=== PATIENT | male | born 1985 | race Hispanic/Latino ===

== ENCOUNTER 2016-11-29 09:59 | Emergency (ER) | payer OTHER ==
[~2016-11-29] VITALS: Ht 165.1 cm; Wt 68.0 kg
[2016-11-29 10:11] VITALS: BP 115/80
--- NOTE | 2016-11-29 11:48 | ED GENERAL ADULT ---
History of Present Illness General Chief Complaint: Abdominal Pain/Flank Pain Stated Complaint: PAIN TO LEFT FLANK Source: patient Exam Limitations: no limitations Vital Signs & Intake/Output Vital Signs & Intake/Output ED Intake and Output 11/30 0000 11/29 1200 Intake Total Output Total Balance Patient 150 lb Weight Weight Reported by Patient Measurement Method Allergies Coded Allergies: NO KNOWN ALLERGIES (11/29/16) Reconcile Medications Ondansetron (Zofran Odt) 4 MG TAB.RAPDIS 1 TAB SL TID PRN nausea Paroxetine HCl 20 MG TABLET 1 TAB PO DAILY DEPRESSION (Reported) Triage Note: PT TO ED C/O LEFT FLANK PAIN SINCE YESTERDAY. STARTED IN [place]AV[place], AND NOW CONSTANT. DENIES S/S. C/O SOME NAUSEA, DENIES V/D. Triage Nurses Notes Reviewed? yes HPI: 31-year-old male history of depression presenting with left testicular pain radiating into the left lower quadrant and left flank since yesterday. Pain began around 3 AM yesterday morning and was initially intermittent, became constant around noon yesterday and has been gradually worsening since. Endorses trace hematuria and nausea, no vomiting. Denies fevers, dysuria, diarrhea, constipation, penile discharge. Pt is currently in a monogamous relationship with a female partner, vaginal intercourse only, denies anal intercourse. No h/o STD's. (ALEXANDER WASHINGTON,LIS) Past History Travel History Traveled to [place] past 21 day No Medical History Any Pertinent Medical History? see below for history Psychiatric: depression Tetanus Vaccine: Surgical History Surgical History: non-contributory Psychosocial History What is your primary language Swedish Tobacco Use: Current Daily Use Daily Tobacco Use Amount/Type: => 5 Cigarettes daily ETOH Use: denies use Illicit Drug Use: denies illicit drug use Family History Hx Contributory? No (LIS MUNOZ PA-C) Review of Systems Review of Systems Constitutional: Reports: no symptoms. Respiratory: Reports: no symptoms. Cardiovascular: Reports: no symptoms. GI: Reports: abdominal pain, nausea. Denies: constipation, diarrhea, vomiting. Genitourinary: Reports: hematuria. Denies: discharge, dysuria. (LIS MUNOZ PA-C) Physical Exam Physical Exam General Appearance: well developed/nourished, mild distress Head: atraumatic Respiratory: normal breath sounds, lungs clear Cardiovascular: regular rate/rhythm, normal peripheral pulses Gastrointestinal: normal bowel sounds, soft, non-tender, On gential exam the left testicle is NT, no edema, , no penile discharge, +cremasteric reflex, neg phren's sign Back: No CVAT Core Measures ACS in differential dx? No CVA/TIA Diagnosis: No Severe Sepsis Present: No Septic Shock Present: No (ALEXANDER WASHINGTON,LIS) Progress Differential Diagnoses I considered the following diagnoses in my evaluation of the patient: [ Epididymitis versus testicular torsion versus inguinal hernia versus kidney stone] Plan of Care: Orders Procedure Date/time Status CBC WITHOUT DIFFERENTIAL 11/29 1203 Complete BASIC METABOLIC PANEL 11/29 1203 Complete URINALYSIS 11/29 1014 Complete Laboratory Tests 11/29/16 1215: Anion Gap 8, Estimated GFR 55 L, BUN/Creatinine Ratio 7.3, Glucose 85, Calcium 9.3, CBC w Diff NO MAN DIFF REQ, RBC 4.94, MCV 93.4, MCH 30.8, RDW 13.8, MPV 8.7 , Gran % 77.0 H, Lymphocytes % 12.3 L, Monocytes % 9.8 H, Eosinophils % 0.8, Basophils % 0.1, Absolute Granulocytes 8.2 H, Absolute Lymphocytes 1.3, Absolute Monocytes 1.0 H, Absolute Eosinophils 0.1, Absolute Basophils 0, PUBS MCHC 33.0 11/29/16 1117: Urinalysis LIGHT H, Urine Color YEL, Urine Clarity CLEAR, Urine pH 7.5, Ur Specific [place] 1.020, Urine Protein 30 H, Urine Ketones NEG, Urine Nitrite NEG, Urine Bilirubin NEG, Urine Urobilinogen 1.0, Ur Leukocyte Esterase NEG, Ur Microscopic SEDIMENT EXAMINED, Urine RBC 15-25 H, Urine WBC 1-3 H, Ur Epithelial Cells RARE, Urine Bacteria RARE H, Urine Mucus MOD H, Urine Hemoglobin LARGE H, Urine Glucose NEG Testicular ultrasound negative for epididymitis or testicular torsion. Incidental finding of bilateral hydroceles and right epididymal head cyst, all of which would not account for the patient's pain. Given negative testicular ultrasound and large amount of blood on UA, patient likely with renal stone. He has good pain control after Toradol and IV fluids. Extensively counseled patient on the risks versus benefit of imaging with CT scan to evaluate for renal stones. Since this pain started about 36 hours ago, patient informed that his stone if present it is likely to pass within the next 12-24 hours. Patient would like to defer CT scan imaging at this time, he will watch and wait. If no pain improvement after 24 hours will come back for reevaluation. (LIS MUNOZ PA-C) Initial ED EKG: none (LIS MUNOZ PA-C) Departure Departure Disposition: HOME OR SELF CARE Condition: Stable Clinical Impression Primary Impression: Flank pain Secondary Impressions: Nausea Referrals: PATIENT HAS NO PRIMARY CARE DR (PCP/Family) Additional Instructions: Use ibuprofen as needed for pain. He's 4 mg of Zofran every 8 hours as needed for nausea. Maintain adequate fluid intake. Return to the ED for any worsening symptoms. Departure Forms: Customer Survey General Discharge Information Prescriptions: Current Visit Scripts Ondansetron (Zofran Odt) 1 TAB SL TID PRN nausea #10 TAB (LIS MUNOZ PA-C) PA/CHAIRLIFT OPERATOR Co-Sign Statement Statement: ED Attending supervision documentation- I saw and evaluated the patient. I have also reviewed all the pertinent lab results and diagnostic results. I agree with the findings and the plan of care as documented in the PA's/CHAIRLIFT OPERATOR's documentation. x I have reviewed the ED Record and agree with the PA's/CHAIRLIFT OPERATOR's documentation. [] Additions or exceptions (if any) to the PAs/CHAIRLIFT OPERATOR's note and plan are summarized below: [] (BARB GARCIA,JUVENCIO) Critical Care Note Critical Care Note Critical Care Time: non-applicable (ILS MUNOZ PA-C)
[2016-11-29 12:52] LABS: ABSOLUTE BASOPHIL COUNT 0 /CUMM (0.0-0.2); ABSOLUTE EOSINOPHIL COUNT 0.1 /CUMM (0.0-0.7); ABSOLUTE GRANULOCYTE CT 8.2 /CUMM (1.4-6.5); ABSOLUTE LYMPH COUNT 1.3 /CUMM (1.2-3.4); BASOPHIL % 0.1 % (0.0-2.0); EOSINOPHIL % 0.8 % (0-5); HEMATOCRIT 46.2 % (42-52); MEAN CORPUSCULAR HGB 30.8 PG (27.0-31.0); MEAN CORPUSCULAR VOLUME 93.4 FL (80.0-94.0); MEAN PLATELET VOLUME 8.7 FL (7.4-10.4); PLATELET COUNT 207 /CUMM (130-400); RBC DISTRIBUTION WIDTH 13.8 % (11.5-14.5); RED BLOOD CELL CT 4.94 /CUMM (4.70-6.10); WHITE BLOOD CELL COUNT 10.6 /CUMM (4.8-10.8)
--- NOTE | 2016-11-29 13:28 | ULTRASOUND REPORT ---
EXAMINATION: US SCROTUM CLINICAL INFORMATION: Left testicular pain radiating to the left lower quadrant and flank. COMPARISON: None. TECHNIQUE: A sonogram of the scrotum was performed assessing encarnacion-scale appearance and color Doppler flow. FINDINGS: RIGHT: Right testicle measures 5.0 x 2.2 x 3.5 cm, volume 25.5 mL. Parenchymal echotexture is normal. No focal testicular parenchymal lesions are visualized. Normal symmetric intratesticular flow is visualized. Right epididymal head is normal in size. A 0.8 x 0.7 x 0.8 cm right epididymal head cyst versus spermatocele is seen. There is a small hydrocele. No varicocele is seen. LEFT: Left testicle measures 4.8 x 2.2 x 3.4 cm, volume 27.3 mL. Parenchymal echotexture is normal. No focal testicular parenchymal lesions are visualized. Normal symmetric intratesticular flow is visualized. Left epididymal head is normal in size. There is a small hydrocele. No varicocele is seen. IMPRESSION: 1. A small right epididymal head cyst versus spermatocele is seen. 2. There are small bilateral hydroceles. 3. No finding is seen to suggest testicular mass or torsion.
[2016-11-29] MEDS ORDERED: PAROXETINE HCL20 M1 PO (14:05)
[2016-11-29] MEDS ORDERED: ZOFRAN ODT4 M1 SL (14:17)
== END 2016-11-29 14:23 ==
LOC: ERH 09:59
PROVIDERS: Physician Assistant
DX: R10.9 Unspecified abdominal pain (principal); R11.0 Nausea; N43.3 Hydrocele, unspecified; N50.3 Cyst of epididymis
CPT/HCPCS: 81001; 96361; 96374; J1885